=== PATIENT | male | born 1970 | race Caucasian/White ===

== ENCOUNTER 2022-12-19 09:58 | Emergency (ER) | payer OTHER, SELFPAY ==
[2022-12-19] VITALS (7 sets, daily range): BP systolic 148–155; BP diastolic 89–96; PULSE 76–91; RESP 16; TEMP 36.7–36.9; O2SAT 93–97; BMI 23.7
--- NOTE | 2022-12-19 10:21 | XR_ITS ---
PROCEDURE INFORMATION: Exam: XR Chest Exam date and time: 12/19/2022 10:25 AM Age: 52 years old Clinical indication: Other: Vomiting; Additional info: Vomiting, followed by hematemesis TECHNIQUE: Imaging protocol: Radiologic exam of the chest. Views: 1 view. COMPARISON: No relevant prior studies available. FINDINGS: Lungs: Interstitial prominence without significant airspace disease. Pleural spaces: No pleural effusion. Heart/Mediastinum: Epicardial fat accentuates the cardiac silhouette. Diaphragm: Asymmetric elevation of right hemidiaphragm. Bones/joints: Unremarkable. IMPRESSION: Interstitial prominence without significant airspace disease.
--- NOTE | 2022-12-19 10:32 | HMH.EDGENADL ---
Discharge Plan Disposition Patient Disposition: Home, Self-Care Condition: Good Prescriptions Prescriptions: New ondansetron HCl 4 mg tablet 4 mg PO Q8H 4 Days Qty: 12 0RF Referrals Follow up/Referrals: Provider,Referral, MD [Primary Care Provider] - See instructions Clinical Impressions Clinical Impression: Foodborne gastroenteritis Discharge ED Provider: Levi Padgett General Adult HPI General Chief complaint: Weakness Stated complaint: confused, not feeling well Time Seen by Provider: 12/19/22 10:00 Mode of Arrival: Wheelchair Source of Information: Patient Limitations: No Limitations Description of Symptoms (Recalled from ER Triage Doc. by RN): 52 yo M presents to ED with c/o weakness, confusion, vomitting. pt states that he just come in yesterday from [place] to visit his family. pt reports that as soon as he pulled into his parents and turned the rico off he began to have weakness and confusion. pt reports vomitting last night. History of Present Illness HPI narrative: This is a 52-year-old male with no medical history presenting with weakness, lightheadedness, vomiting. Patient states that he came to [place] on 12/14 4 in the PM from [place]. He stopped a fast food restaurant and ate, couple hours later, he pulled into his parents house. He started vomiting when he got to his parents house and felt lightheaded. Patient states while all of this was happening, thoughts of fishing were going through my head with all sorts of other crazy thoughts. No loss of consciousness, shortness of breath, chest pain, diaphoresis, abdominal pain, fevers or chills. Patient's vomit was initially nonbloody, nonbilious, then was red, but does not necessarily describe his blood, then a short time later, patient vomited and appeared to be dark brown/black. Has not had any melena or hematochezia. Has not vomited in the past few hours. Related Data Previous Rx's Medication Instructions Recorded ondansetron HCl 4 mg tablet 4 mg PO Q8H 4 days #12 tabs 12/19/22 Allergies Allergy/AdvReac Type Severity Reaction Status Date / Time No Known Allergies Allergy Verified 12/19/22 10:28 [facility] Disclaimer: The information contained in this section may have been updated after the patient was seen, as this information can be updated by other users. Social History Smoking Status: Never smoker alcohol intake: never current occupational status: employed Travel in the last 8 weeks: Inside the [place] ROS Obtained: Yes All systems reviewed & no additional complaints except as documented Physical Exam General General appearance: alert and in no apparent distress Head Head exam: atraumatic and normocephalic Eye Eye exam: Present normal appearance, PERRL and EOMI Neck Neck exam: Present normal inspection Respiratory Respiratory exam: Present normal lung sounds bilaterally; Absent respiratory distress, wheezes or stridor Cardiovascular Cardiovascular exam: Present regular rate and normal rhythm Abdominal Exam Abdominal exam: Present soft; Absent distention, tenderness, guarding or rebound Back Exam Back exam: Absent CVA tenderness (R) or CVA tenderness (L) Neurological Exam Neurological exam: Present alert, oriented X3, CN II-XII intact and normal gait; Absent motor sensory deficit Skin Skin exam: Present warm and dry Medical Decision Making Medical Records Medical records reviewed: Yes I reviewed the patient's medical records. Miguel Angel Inquiry Pt receiving controlled substance: No Miguel Angel was queried for this patient: No Vital Signs: 12/19/22 09:59 12/19/22 10:05 12/19/22 10:31 Temperature 98.5 F Temperature Source Oral Pulse Rate 91 H 82 Pulse Rate [Left] 84 Respiratory Rate 16 Blood Pressure 150/90 H 155/96 H Blood Pressure [Right Arm] 150/90 H Blood Pressure Mean 130 Blood Pressure Mean [Right Arm] 110 02 Sat by Pulse Oximetry 97 97 97 12/19/22 10:35 12/19/22 11:00 12/19
[2022-12-19 10:44] LABS: Basophils % 0.2 % (0.1-2.0); Eosinophils % 0.3 % (0.1-12.0); Hematocrit 46.6 % (42.0-52.0); Lymphocytes # 0.6 K/mm3 (0.7-4.5); Lymphocytes % 9.9 % (10-50); Mean Corpuscular HGB Conc 34.2 g/dL (31.8-35.4); Mean Corpuscular Hemoglobin 30.1 pg (27.0-31.2); Mean Corpuscular Volume 88.1 fl (80-94); Mean Platelet Volume 7.2 fl (7.4-10.4); Monocytes # 0.3 K/mm3 (0.1-1.0); Neutrophils # 5.3 K/mm3 (1.8-7.8); Neutrophils % 84.6 % (37.0-80.0); Platelet Count 227 K/mm3 (142-424); Red Blood Count 5.29 M/mm3 (4.60-6.20); Red Cell Distribution Width 12.8 % (11.5-17.5); White Blood Count 6.3 K/mm3 (4.8-10.8)
--- NOTE | 2022-12-19 10:45 | ECG_ITS ---
APPROVED REPORT Exam: Resting ECG HR:86 bpm ECG Measurements Heart Rate 86 AXES OH 161 P 75 QRSd 109 QRS 45 QT 364 T 69 QTc 408 Conclusion SINUS RHYTHM POSSIBLE LEFT ATRIAL ENLARGEMENT [-0.1mV P-WAVE IN V1/V2] INCOMPLETE RIGHT BUNDLE BRANCH BLOCK [90+ ms QRS DURATION, TERMINAL R IN V1/V2, 40+ ms S IN I/aVL/V4/V5/V6] BORDERLINE ECG UNCONFIRMED REPORT Electronically signed by : Yomi Mcgrath MD 12/21/2022 21:37:39
--- NOTE | 2022-12-19 10:49 | PC.NURSE ---
family at BS
[2022-12-19 11:14] LABS: Chloride 95 mmol/L (98-107); Sodium 139 mmol/L (136-145)
[2022-12-19 11:17] LABS: Alanine Aminotransferase 36 U/L (12-78); Albumin Level 4.8 g/dl (3.5-5.0); Albumin/Globulin Ratio 1.5 (1.1-1.8); Alkaline Phosphatase 55 U/L (38-126); Aspartate Amino Transferase 36 U/L (17-59); Bilirubin,Total 1.4 mg/dl (0.2-1.3); Blood Urea Nitrogen 30 mg/dl (9-20); Carbon Dioxide 32 mmol/L (22.0-30.0); Creatinine Clearance Estimated 121 mL/min (50-200); Estimated Glomerular Filt Rate 102 ml/min (>60); GFR (African American) 123 ML/MIN (>60); Globulin 3.2 g/dL (1.3-3.2)
[2022-12-19 11:18] LABS: Calcium 9.1 mg/dl (8.4-10.2); Glucose 169 mg/dl (74-100)
--- NOTE | 2022-12-19 11:42 | PC.NURSE ---
pt sitting up in bed with no requests at this time. tap waters at BS
== END 2022-12-19 12:13 | disposition home or self-care (01) ==
PROVIDERS: Emergency Provider Emergency Medicine
DX: A05.9 Bacterial foodborne intoxication, unspecified (principal); R53.1 Weakness; R41.0 Disorientation, unspecified; I45.19 Other right bundle-branch block
CPT/HCPCS: 71045; 80053; 85025; 93005; 96361; 96374; 99285; J2405